=== PATIENT | male | born 1965 | race Caucasian/White ===

== ENCOUNTER 2019-05-04 22:37 | Inpatient (IN) | payer BC ==
[~2019-05-04] VITALS: Ht 172.7 cm; Wt 113.6 kg
--- NOTE | 2019-05-04 22:51 | NUR ---
elizabeth to give medical information to patients [id number] halima sanders [phone]
[2019-05-04] MEDS ORDERED: morphine 4 MG/ML inj SYRINge IV ONE (23:00)
[2019-05-04] MEDS ORDERED: ketorolac trometh. 30mg/ml inj. IV ONE (23:00)
[2019-05-04] MEDS ORDERED: NO HOME MEDS (23:13)
[2019-05-04] MEDS ORDERED: ondansetron/PF 4mg/2ml inj IV PRN (23:15)
[2019-05-04] MEDS ORDERED: CefTRIAXone/D5W-Rocephin 1gm 50 ML IV SCH (23:15)
[2019-05-04] MEDS ORDERED: magnesium hydroxide 30ml (MOM) UD suspension PO PRN (23:15)
[2019-05-04] MEDS ORDERED: acetaminophen 325mg tablet PO PRN ×2 (23:15)
[2019-05-04] MEDS ORDERED: mag hydrox/Alum hydrox/simeth 30ml oral suspension PO PRN (23:15)
[2019-05-04] MEDS ORDERED: CefTRIAXone/D5W-Rocephin 1gm 50 ML IV ONE (23:25)
[2019-05-04] MEDS: normal saline 1000ml 1,000 ML IV SCH (23:37)
[2019-05-05] MEDS ORDERED: VANCOmycin 1250MG/NS 250ml Bag 250 ML IV ONE (00:25)
[2019-05-05 01:00] VITALS: BP 127/75
[2019-05-05] MEDS: HYDROcodone/acetaminophen 10/325mg tab PO PRN ×2 (03:11→07:47)
[2019-05-05 05:28] LABS: BASOPHILS # (AUTO) 0.1 X10'3 (0-0.2); BASOPHILS % (AUTO) 0.4 % (0-1); EOSINOPHILS % (AUTO) 0.3 % (0-6); HEMATOCRIT 39.4 % (42.0-52.0); HEMOGLOBIN 13.4 g/dl (14.0-17.9); LYMPHOCYTES # (AUTO) 2.5 X10'3 (1.1-4.8); LYMPHOCYTES % (AUTO) 19.8 % (21-51); MEAN CORPUSCULAR HEMOGLOBIN 31.4 PG (27.0-31.0); MEAN CORPUSCULAR VOLUME 92.3 FL (78-98); MEAN PLATELET VOLUME 6.9 FL (7.4-10.4); MONOCYTES # (AUTO) 0.9 X10'3 (0-0.9); MONOCYTES % (AUTO) 7.2 % (2-12); NEUTROPHILS # (AUTO) 9.1 X10'3 (1.8-7.7); NEUTROPHILS % (AUTO) 72.3 % (42-75); PLATELET COUNT 319 X10'3 (140-440); RED BLOOD COUNT 4.26 X10'6 (4.70-6.10); WHITE BLOOD COUNT 12.5 X10'3 (4.5-11.0)
[2019-05-05 05:42] LABS: ALBUMIN 2.7 G/DL (3.4-5.0); ANION GAP 9 (8-16); BLOOD UREA NITROGEN 15 MG/DL (7-18); BUN/CREATININE RATIO 18.1 (5.4-32.0); CALCIUM 7.9 MG/DL (8.5-10.1); CHLORIDE 101 MMOL/L (99-107); CREATININE 0.83 MG/DL (0.60-1.10); GLUCOSE 99 MG/DL (70-104); POTASSIUM 3.6 MMOL/L (3.5-5.1); SODIUM 134 MMOL/L (135-145); TOTAL CARBON DIOXIDE 24.5 MMOL/L (24-32); eGFR > 90 ML/MIN
[2019-05-05 07:29] VITALS: BP 131/78
[2019-05-05] MEDS: lactobacillus rhamnosus 10,000 MMU CELLS/CAPSULE PO SCH ×2 (07:47→20:28)
[2019-05-05] MEDS: enoxaparin 40mg/0.4ml syringe SUBCUT SCH (07:49)
[2019-05-05] MEDS ORDERED: vancomycin/NS 1 GM ADD-VANTAGE 250 ML IV SCH (08:00)
[2019-05-05] MEDS: normal saline 1000ml 1,000 ML IV SCH ×2 (09:15→13:59)
[2019-05-05] MEDS ORDERED: docusate sod 100mg capsule PO ONE (10:46)
[2019-05-05 11:00] VITALS: BP 126/76
[2019-05-05] MEDS: HYDROmorphone 1 mg/ml syringe IV PRN ×3 (11:40→20:29)
[2019-05-05] MEDS ORDERED: tetanus & diphtheria toxoid (Td) vaccine 0.5ml IMVAC ONE (14:05)
[2019-05-05] MEDS ORDERED: LORazepam 1 MG tablet PO PRN (14:05)
[2019-05-05] MEDS ORDERED: TETanus/Pertussis (Acell)/Diphther VAC/PF (Tdap-Adult) 0.5ml syringe IMVAC ONE (15:30)
[2019-05-05 18:00] VITALS: BP 132/71
--- NOTE | 2019-05-05 18:21 | NUR ---
Problems reprioritized. Patient report given, questions answered & plan of care reviewed with Prudence RN.
--- NOTE | 2019-05-05 18:39 | NUR ---
Patient in room [facility]. I have received report from Rupal TAVERA and had the opportunity to ask questions and assume patient care.
[2019-05-05] MEDS: docusate sod 100mg capsule PO SCH (20:28)
[2019-05-05] MEDS: temazepam 15mg capsule PO PRN (21:38)
[2019-05-05] MEDS: CefTRIAXone/D5W-Rocephin 1gm 50 ML IV SCH (23:29)
[2019-05-06] VITALS (12 sets, daily range): BP systolic 124–165; BP diastolic 69–97
[2019-05-06] MEDS: HYDROmorphone 1 mg/ml syringe IV PRN ×6 (00:35→20:50)
[2019-05-06] MEDS: normal saline 1000ml 1,000 ML IV SCH ×3 (00:40→20:49)
[2019-05-06 05:47] LABS: BASOPHILS % (AUTO) 0.3 % (0-1); EOSINOPHILS % (AUTO) 0.4 % (0-6); HEMATOCRIT 38.8 % (42.0-52.0); HEMOGLOBIN 13.2 g/dl (14.0-17.9); LYMPHOCYTES # (AUTO) 2.2 X10'3 (1.1-4.8); LYMPHOCYTES % (AUTO) 18.2 % (21-51); MEAN CORPUSCULAR HEMOGLOBIN 31.4 PG (27.0-31.0); MEAN CORPUSCULAR HGB CONC 33.9 g/dL (33.0-36.5); MEAN CORPUSCULAR VOLUME 92.6 FL (78-98); MEAN PLATELET VOLUME 6.6 FL (7.4-10.4); MONOCYTES # (AUTO) 0.8 X10'3 (0-0.9); MONOCYTES % (AUTO) 7.1 % (2-12); NEUTROPHILS # (AUTO) 8.7 X10'3 (1.8-7.7); PLATELET COUNT 275 X10'3 (140-440); RED BLOOD COUNT 4.19 X10'6 (4.70-6.10); WHITE BLOOD COUNT 11.8 X10'3 (4.5-11.0)
[2019-05-06 05:56] LABS: ALBUMIN 2.6 G/DL (3.4-5.0); ANION GAP 8 (8-16); BLOOD UREA NITROGEN 12 MG/DL (7-18); BUN/CREATININE RATIO 15.4 (5.4-32.0); CALCIUM 8.1 MG/DL (8.5-10.1); CHLORIDE 103 MMOL/L (99-107); CREATININE 0.78 MG/DL (0.60-1.10); GLUCOSE 97 MG/DL (70-104); POTASSIUM 3.7 MMOL/L (3.5-5.1); SODIUM 137 MMOL/L (135-145); TOTAL CARBON DIOXIDE 26.5 MMOL/L (24-32); eGFR > 90 ML/MIN
--- NOTE | 2019-05-06 06:00 | NUR ---
Patient in room [facility] 360. I have received report from Precious TAVERA and had the opportunity to ask questions and assume patient care.
--- NOTE | 2019-05-06 06:37 | NUR ---
Problems reprioritized. Patient report given, questions answered & plan of care reviewed with Rupal TAVERA. Patient has been having contant pain and pain medication was administered as ordered.
[2019-05-06] MEDS: enoxaparin 40mg/0.4ml syringe SUBCUT SCH (07:06)
[2019-05-06] MEDS: docusate sod 100mg capsule PO SCH ×2 (07:07→20:49)
[2019-05-06] MEDS: lactobacillus rhamnosus 10,000 MMU CELLS/CAPSULE PO SCH ×2 (07:07→20:49)
[2019-05-06] MEDS ORDERED: VANCOMYCIN LEVEL IV ONE (08:30)
--- NOTE | 2019-05-06 11:54 | NUR ---
Patient report given to recovery nurse Cesar TAVERA. Pt taken down to OR. OR personnel took pt down without informing primary nurse, family very upset about miscommunication. Charge nurse and OR Charge nurse informed.
[2019-05-06] MEDS ORDERED: morphine 4 MG/ML inj SYRINge IV PRN ×2 (12:00)
[2019-05-06] MEDS ORDERED: meperidine/PF 25mg/ml syringe IV PRN ×3 (12:00)
[2019-05-06] MEDS ORDERED: proCHLORperazine 10 MG/2 ml inj IV PRN (12:00)
[2019-05-06] MEDS ORDERED: ondansetron/PF 4mg/2ml inj IV PRN (12:00)
[2019-05-06] MEDS ORDERED: ringers solution, lacted 1,000 ML IV SCH (12:00)
[2019-05-06] MEDS ORDERED: sevoflurane 250ml liquid IH ONE (12:15)
[2019-05-06] MEDS ORDERED: midazolam 2 mg/2 ml injection ONE (12:18)
[2019-05-06] MEDS ORDERED: fentaNYL /PF 50mcg/ml 5ml ampule ONE (12:18)
[2019-05-06] MEDS ORDERED: ondansetron/PF 4mg/2ml inj ONE (12:52)
[2019-05-06] MEDS ORDERED: dexamethasone sod phosphate 4mg/ml inj. ONE (12:52)
[2019-05-06] MEDS ORDERED: glycopyrrolate 0.2mg/ml inj ONE (12:52)
[2019-05-06] MEDS ORDERED: rocuronium 10mg/ml inj IV ONE (12:52)
[2019-05-06] MEDS ORDERED: propofol inj 20 ML IV ONE (12:52)
[2019-05-06] MEDS ORDERED: neostigmine methylsulfate 1 MG/ML 10ml vial ONE (12:52)
[2019-05-06] MEDS ORDERED: LIDOcaine 2% (20mg/ml) 5ml vial ONE (12:52)
[2019-05-06] MEDS ORDERED: albuterol 60 PUFF/8GM Inhaler IH ONE (13:24)
--- NOTE | 2019-05-06 13:25 | NUR ---
ADMITTED TO PACU FROM OR ACCOMPANIED BY ANESTHESIA. INTIAL PHYSICAL ASSESSMENT DONE AND RECORDED. REPORT RECEIVED FROM ANESTHESIA.
--- NOTE | 2019-05-06 14:30 | NUR ---
PACU DISCHARGE CRITERIA MET, REPORT GIVEN TO FLOOR. DENIES PAIN OR DISCOMFORT, TRANSFERRED TO ROOM IN STABLE GOOD CONDITION.
--- NOTE | 2019-05-06 18:28 | NUR ---
Problems reprioritized. Patient report given, questions answered & plan of care reviewed with Prudence RN.
[2019-05-06] MEDS: CefTRIAXone/D5W-Rocephin 1gm 50 ML IV SCH (23:07)
[2019-05-07] VITALS: BP 120/96
[2019-05-07] MEDS: HYDROcodone/acetaminophen 5mg/325mg tablet PO PRN ×2 (02:57→19:19)
[2019-05-07 04:44] LABS: BASOPHILS % (AUTO) 0.2 % (0-1); EOSINOPHILS % (AUTO) 0 % (0-6); HEMATOCRIT 37.6 % (42.0-52.0); HEMOGLOBIN 12.9 g/dl (14.0-17.9); LYMPHOCYTES # (AUTO) 1.9 X10'3 (1.1-4.8); LYMPHOCYTES % (AUTO) 15.2 % (21-51); MEAN CORPUSCULAR HEMOGLOBIN 31.8 PG (27.0-31.0); MEAN CORPUSCULAR HGB CONC 34.3 g/dL (33.0-36.5); MEAN CORPUSCULAR VOLUME 92.5 FL (78-98); MEAN PLATELET VOLUME 6.7 FL (7.4-10.4); MONOCYTES # (AUTO) 0.8 X10'3 (0-0.9); MONOCYTES % (AUTO) 6.3 % (2-12); NEUTROPHILS # (AUTO) 9.7 X10'3 (1.8-7.7); NEUTROPHILS % (AUTO) 78.3 % (42-75); PLATELET COUNT 338 X10'3 (140-440); RED BLOOD COUNT 4.06 X10'6 (4.70-6.10); RED CELL DISTRIBUTION WIDTH 12.9 % (11.5-14.5); WHITE BLOOD COUNT 12.4 X10'3 (4.5-11.0)
[2019-05-07 06:02] LABS: ALBUMIN 2.5 G/DL (3.4-5.0); ANION GAP 10 (8-16); BLOOD UREA NITROGEN 10 MG/DL (7-18); BUN/CREATININE RATIO 15.6 (5.4-32.0); CALCIUM 8.9 MG/DL (8.5-10.1); CHLORIDE 104 MMOL/L (99-107); CREATININE 0.64 MG/DL (0.60-1.10); GLUCOSE 121 MG/DL (70-104); SODIUM 139 MMOL/L (135-145); TOTAL CARBON DIOXIDE 24.8 MMOL/L (24-32); eGFR > 90 ML/MIN
--- NOTE | 2019-05-07 06:32 | NUR ---
Problems reprioritized. Patient report given, questions answered & plan of care reviewed with Rupal TAVERA.
--- NOTE | 2019-05-07 06:52 | NUR ---
Patient in room [facility] 357. I have received report from Precious TAVERA and had the opportunity to ask questions and assume patient care.
[2019-05-07 06:57] VITALS: BP 123/70
[2019-05-07] MEDS ORDERED: VANCOMYCIN LEVEL IV ONE ×2 (07:30→08:30)
[2019-05-07] MEDS: docusate sod 100mg capsule PO SCH ×2 (08:08→19:18)
[2019-05-07] MEDS: HYDROcodone/acetaminophen 10/325mg tab PO PRN ×2 (08:08→14:09)
[2019-05-07] MEDS: lactobacillus rhamnosus 10,000 MMU CELLS/CAPSULE PO SCH ×2 (08:08→19:18)
[2019-05-07] MEDS: enoxaparin 40mg/0.4ml syringe SUBCUT SCH (08:09)
[2019-05-07 11:33] VITALS: BP 128/74
[2019-05-07] MEDS: normal saline 1000ml 1,000 ML IV SCH ×2 (11:49→21:55)
[2019-05-07] MEDS ORDERED: VANCOmycin 1250MG/NS 250ml Bag 250 ML IV SCH (14:00)
[2019-05-07 18:00] VITALS: BP 122/74
--- NOTE | 2019-05-07 18:13 | NUR ---
Problems reprioritized. Patient report given, questions answered & plan of care reviewed with Prudence RN.
--- NOTE | 2019-05-07 18:28 | NUR ---
Patient in room [facility] 357. I have received report from Rupal TAVERA and had the opportunity to ask questions and assume patient care. Patient is resting and shows no sign of distress.
[2019-05-07] MEDS: temazepam 15mg capsule PO PRN (21:54)
[2019-05-08] VITALS: BP 121/66
[2019-05-08] MEDS: piperacillin/tazo 3.375gm/50ml 50 ML IV SCH ×2 (00:12→08:07)
[2019-05-08] MEDS: HYDROcodone/acetaminophen 5mg/325mg tablet PO PRN ×4 (02:28→19:18)
--- NOTE | 2019-05-08 06:40 | NUR ---
Problems reprioritized. Patient report given, questions answered & plan of care reviewed withMaryam TAVERA. Patient is resting.
[2019-05-08 07:06] VITALS: BP 145/85
[2019-05-08] MEDS: normal saline 1000ml 1,000 ML IV SCH ×2 (07:15→16:36)
[2019-05-08 07:21] LABS: BASOPHILS % (AUTO) 0.5 % (0-1); EOSINOPHILS # (AUTO) 0.1 X10'3 (0-0.9); EOSINOPHILS % (AUTO) 1.3 % (0-6); HEMATOCRIT 35.7 % (42.0-52.0); HEMOGLOBIN 12.5 g/dl (14.0-17.9); LYMPHOCYTES # (AUTO) 2.5 X10'3 (1.1-4.8); LYMPHOCYTES % (AUTO) 33.2 % (21-51); MEAN CORPUSCULAR HEMOGLOBIN 31.8 PG (27.0-31.0); MEAN CORPUSCULAR HGB CONC 34.9 g/dL (33.0-36.5); MEAN CORPUSCULAR VOLUME 91.1 FL (78-98); MEAN PLATELET VOLUME 6.3 FL (7.4-10.4); MONOCYTES # (AUTO) 0.5 X10'3 (0-0.9); NEUTROPHILS # (AUTO) 4.3 X10'3 (1.8-7.7); PLATELET COUNT 350 X10'3 (140-440); RED BLOOD COUNT 3.92 X10'6 (4.70-6.10); RED CELL DISTRIBUTION WIDTH 12.8 % (11.5-14.5); WHITE BLOOD COUNT 7.5 X10'3 (4.5-11.0)
[2019-05-08] MEDS ORDERED: VANCOMYCIN LEVEL IV ONE (07:30)
[2019-05-08 07:50] LABS: ALBUMIN 2.5 G/DL (3.4-5.0); ANION GAP 7 (8-16); BLOOD UREA NITROGEN 11 MG/DL (7-18); BUN/CREATININE RATIO 15.9 (5.4-32.0); CALCIUM 9.5 MG/DL (8.5-10.1); CHLORIDE 107 MMOL/L (99-107); CREATININE 0.69 MG/DL (0.60-1.10); GLUCOSE 93 MG/DL (70-104); POTASSIUM 3.5 MMOL/L (3.5-5.1); SODIUM 141 MMOL/L (135-145); TOTAL CARBON DIOXIDE 26.7 MMOL/L (24-32); eGFR > 90 ML/MIN
[2019-05-08] MEDS: docusate sod 100mg capsule PO SCH ×2 (08:06→19:17)
[2019-05-08] MEDS: lactobacillus rhamnosus 10,000 MMU CELLS/CAPSULE PO SCH ×2 (08:06→19:17)
[2019-05-08] MEDS: enoxaparin 40mg/0.4ml syringe SUBCUT SCH (08:07)
--- NOTE | 2019-05-08 10:45 | NUR ---
Student documentation: I have reviewed and agree with all interventions, assessments performed and documented by SN Debbie.
[2019-05-08 12:19] VITALS: BP 145/87
--- NOTE | 2019-05-08 18:29 | NUR ---
Problems reprioritized. Patient report given, questions answered & plan of care reviewed with AYSE Odom.
[2019-05-08 18:30] VITALS: BP 159/87
--- NOTE | 2019-05-08 18:31 | NUR ---
Patient in room [facility] 357. I have received report from Claire TAVERA and had the opportunity to ask questions and assume patient care.
[2019-05-08] MEDS: HYDROcodone/acetaminophen 10/325mg tab PO PRN (22:42)
[2019-05-09] VITALS: BP 157/88
[2019-05-09] MEDS: normal saline 1000ml 1,000 ML IV SCH ×2 (02:45→13:15)
[2019-05-09] MEDS: HYDROcodone/acetaminophen 10/325mg tab PO PRN ×2 (04:18→10:10)
[2019-05-09 05:14] LABS: BASOPHILS % (AUTO) 0.4 % (0-1); EOSINOPHILS # (AUTO) 0.1 X10'3 (0-0.9); EOSINOPHILS % (AUTO) 1.8 % (0-6); HEMATOCRIT 37.9 % (42.0-52.0); HEMOGLOBIN 13.1 g/dl (14.0-17.9); LYMPHOCYTES # (AUTO) 2.4 X10'3 (1.1-4.8); LYMPHOCYTES % (AUTO) 33.2 % (21-51); MEAN CORPUSCULAR HEMOGLOBIN 31.6 PG (27.0-31.0); MEAN CORPUSCULAR HGB CONC 34.5 g/dL (33.0-36.5); MEAN CORPUSCULAR VOLUME 91.8 FL (78-98); MEAN PLATELET VOLUME 6.5 FL (7.4-10.4); MONOCYTES # (AUTO) 0.5 X10'3 (0-0.9); MONOCYTES % (AUTO) 6.5 % (2-12); NEUTROPHILS # (AUTO) 4.1 X10'3 (1.8-7.7); NEUTROPHILS % (AUTO) 58.1 % (42-75); PLATELET COUNT 382 X10'3 (140-440); RED BLOOD COUNT 4.14 X10'6 (4.70-6.10); WHITE BLOOD COUNT 7.1 X10'3 (4.5-11.0)
[2019-05-09 05:38] LABS: ANION GAP 9 (8-16); CALCIUM 9.7 MG/DL (8.5-10.1); CHLORIDE 106 MMOL/L (99-107); CREATININE 0.56 MG/DL (0.60-1.10); GLUCOSE 89 MG/DL (70-104); POTASSIUM 3.4 MMOL/L (3.5-5.1); SODIUM 141 MMOL/L (135-145); TOTAL CARBON DIOXIDE 26.1 MMOL/L (24-32); eGFR > 90 ML/MIN
[2019-05-09 05:55] LABS: ALBUMIN 2.6 G/DL (3.4-5.0); BLOOD UREA NITROGEN 6 MG/DL (7-18); BUN/CREATININE RATIO 10.7 (5.4-32.0)
--- NOTE | 2019-05-09 06:35 | NUR ---
Problems reprioritized. Patient report given, questions answered & plan of care reviewed with Anna TAVERA.
[2019-05-09 07:28] VITALS: BP 167/86
[2019-05-09] MEDS: lactobacillus rhamnosus 10,000 MMU CELLS/CAPSULE PO SCH (07:50)
[2019-05-09] MEDS: enoxaparin 40mg/0.4ml syringe SUBCUT SCH (07:51)
[2019-05-09] MEDS: docusate sod 100mg capsule PO SCH (07:51)
[2019-05-09] MEDS ORDERED: levoFLOXACIN-Levaquin 500mg/D5 100 ML IV SCH (08:00)
[2019-05-09] MEDS ORDERED: potassium Cl 20 mEq SR tablet PO ONE (10:40)
[2019-05-09 11:00] VITALS: BP 159/89
[2019-05-09] MEDS ORDERED: LEVO500T2 PO (11:20)
--- NOTE | 2019-05-09 11:26 | NUR ---
Will be waiting for discharge in order to have wound care change wound VAC dressing. Patient aware.
[2019-05-09] MEDS: HYDROmorphone 1 mg/ml syringe IV PRN (12:13)
--- NOTE | 2019-05-09 12:32 | NUR ---
PAGER ID: [phone] MESSAGE: Deni Monaco [id number] Pt's is concerned about pt. going home and would like to speak with you in person. Pt. also requesting [place] to go home with. Anna [phone]
[2019-05-09] MEDS ORDERED: HYDR-4353 PO (12:45)
--- NOTE | 2019-05-09 13:17 | NUR ---
WOUND VAC EDUCATION PROVIDED BY WOUND CARE 1. Patient instructed to call the Wound Center or their Home Health Agency immediately if: * They notice a change in the color or amount of the fluid in the canister. * Their wound looks more red than usual or has a foul smell. * The skin around their wound looks reddened or irritated. * The dressing feels loose or appears to be loose. * They experience any increase or changes in their pain. * The alarm will not turn off. 2. Patient instructed that they should not be disconnected from suction for more than 2 hours at a time. * If they are not able to get the suction back on, they need to remove the dressing and take all of the foam out of the wound. * Then moisten sterile gauze with normal saline and place on/in the wound. * Change the dressing once a day until arrangements have been made to replace the wound vac dressing. 3. Patient instructed to turn the wound vac machine OFF and call 911 or go to the ED immediately if their canister fills rapidly with blood. 4. If any of these occur while in the hospital tell a nurse immediately. Addendum: 05/09/19 at 1318 by Laverne Morton RN Amended: Links added.
--- NOTE | 2019-05-09 15:17 | NUR ---
Waiting on discharge r/t wound vac authorization.
--- NOTE | 2019-05-09 17:30 | NUR ---
Pt. discharged in a stable condition. IV DC"d. Home wound VAC provided by case management. Pt. will follow up at PCP and MD Kiran's office. Contact info provided. Wound Vac education provided. Pt. knows to pick remover medications at pharmacy. Medications reviewed with pt. and spouse. Pt. escorted out of hospital in a w/c by hospital staff member to private vehicle.
== END 2019-05-09 17:29 | disposition home health service (06) | DRG 603 ==
LOC: ER 22:39 → ED HOLD 05-05 00:18 → SUR 3N 05-05 00:22
PROVIDERS: ADMIT Hospitalist; ATTEND Family Medicine
PROC: 0W9M0ZZ Drainage of Male Perineum, Open Approach (ICD-10-PCS; principal; 2019-05-06 12:15)
DX: L02.215 Cutaneous abscess of perineum (principal); E87.1 Hypo-osmolality and hyponatremia; E44.0 Moderate protein-calorie malnutrition; B95.62 Methicillin resistant Staphylococcus aureus infection as the cause of diseases classified elsewhere; D64.9 Anemia, unspecified; E87.6 Hypokalemia; N48.21 Abscess of corpus cavernosum and penis; B96.20 Unspecified Escherichia coli [E. coli] as the cause of diseases classified elsewhere; L03.315 Cellulitis of perineum; Z68.38 Body mass index [BMI] 38.0-38.9, adult; Z90.49 Acquired absence of other specified parts of digestive tract
CPT/HCPCS: 96365; 96375; 99285; Z7506; Z7508; 36415; 80048; 80202; 85025; 87070; 87077; 87081; 87186; 93005; A4215; A4338; A4618; A6550; A7000; G0378; J0696; J1100; J1170; J1650; J1885; J1956; J2001; J2250; J2270; J2405; J2543; J2704; J2710; J3010; J3370; J3490; J7030; J7120

== ENCOUNTER 2019-11-05 13:48 | Inpatient (IN) | payer BC ==
[2019-11-05] VITALS (8 sets, daily range): BP systolic 114–128; BP diastolic 65–81
[~2019-11-05] VITALS: Ht 167.6 cm; Wt 109.1 kg
[2019-11-05] MEDS ORDERED: verapamil 2.5 mg/ml inj IV ONE (13:55)
[2019-11-05] MEDS ORDERED: midazolam 2 mg/2 ml injection ONE (13:55)
[2019-11-05] MEDS ORDERED: fentaNYL/PF 50MCG/1 ML 2ML syringe ONE (13:55)
[2019-11-05] MEDS ORDERED: iohexol 350MG/ML 100ml bottle IV ONE ×2 (13:56→14:52)
[2019-11-05] MEDS ORDERED: LIDOcaine 1% (10mg/ml)w/preservative injection 20ml MDV ONE (13:56)
[2019-11-05] MEDS ORDERED: nitroGLYCERIN-Tridil 50MG/D5W 250 ML IV ONE (13:56)
[2019-11-05] MEDS ORDERED: iohexol 350 MG/ML 50ML vial IV ONE (13:56)
[2019-11-05] MEDS ORDERED: heparin 1,000unit/ml 10ml vial 10 ML ONE ×2 (13:56→15:18)
--- NOTE | 2019-11-05 14:17 | NUR ---
DR. LANDAVERDE AT BEDSIDE. PT PREPPED BY MILTON SINGH RN AT [facility] TO TRANSPORT PT TO BOOM MASTER.
[2019-11-05 14:18] LABS: BASOPHILS % (AUTO) 0.4 % (0-1); EOSINOPHILS % (AUTO) 0.2 % (0-6); HEMATOCRIT 45.7 % (42.0-52.0); HEMOGLOBIN 15.1 g/dl (14.0-17.9); LYMPHOCYTES # (AUTO) 3.3 X10'3 (1.1-4.8); LYMPHOCYTES % (AUTO) 26.6 % (21-51); MEAN CORPUSCULAR HEMOGLOBIN 30.4 PG (27.0-31.0); MEAN CORPUSCULAR HGB CONC 32.9 g/dL (33.0-36.5); MEAN CORPUSCULAR VOLUME 92.3 FL (78-98); MEAN PLATELET VOLUME 6.3 FL (7.4-10.4); MONOCYTES # (AUTO) 0.7 X10'3 (0-0.9); MONOCYTES % (AUTO) 5.8 % (2-12); NEUTROPHILS # (AUTO) 8.4 X10'3 (1.8-7.7); PLATELET COUNT 350 X10'3 (140-440); RED BLOOD COUNT 4.95 X10'6 (4.70-6.10); RED CELL DISTRIBUTION WIDTH 14.2 % (11.5-14.5); WHITE BLOOD COUNT 12.6 X10'3 (4.5-11.0)
[2019-11-05 14:35] LABS: ALANINE AMINOTRANSFERASE 66 U/L (12-78); ALBUMIN 3.6 G/DL (3.4-5.0); ALKALINE PHOSPHATASE 62 IU/L (46-116); ANION GAP 9 (8-16); ASPARTATE AMINO TRANSFERASE 288 U/L (10-37); BILIRUBIN,TOTAL 1.1 MG/DL (0.1-1.0); BLOOD UREA NITROGEN 18 MG/DL (7-18); BUN/CREATININE RATIO 24.7 (5.4-32.0); CALCIUM 8.3 MG/DL (8.5-10.1); CHLORIDE 108 MMOL/L (99-107); CREATININE 0.73 MG/DL (0.60-1.10); GLUCOSE 103 MG/DL (70-104); POTASSIUM 3.9 MMOL/L (3.5-5.1); SODIUM 141 MMOL/L (135-145); TOTAL CARBON DIOXIDE 24.4 MMOL/L (24-32); TOTAL PROTEIN 7.1 G/DL (6.4-8.2); eGFR > 90 ML/MIN
[2019-11-05] MEDS ORDERED: heparin 25,000 UNIT/250ml bag 250 ML IV ONE (14:43)
[2019-11-05] MEDS ORDERED: ticagrelor 90mg tablet ONE (15:11)
[2019-11-05] MEDS ORDERED: LISI10TA4 PO (16:13)
[2019-11-05] MEDS ORDERED: HYDROcodone/acetaminophen 5mg/325mg tablet PO PRN ×2 (16:15→16:35)
[2019-11-05] MEDS ORDERED: normal saline 1000ml 1,000 ML IV ONE (16:15)
[2019-11-05] MEDS ORDERED: OXAZEpam 15mg capsule PO PRN (16:15)
[2019-11-05] MEDS ORDERED: HYDROcodone/acetaminophen 10/325mg tab PO PRN (16:15)
[2019-11-05] MEDS ORDERED: ondansetron/PF 4mg/2ml inj IV PRN ×2 (16:15→16:35)
[2019-11-05] MEDS ORDERED: nitroGLYCERIN 0.4mg SUBLingual tab SL PRN (16:15)
[2019-11-05] MEDS ORDERED: proCHLORperazine 10 MG/2 ml inj IV PRN (16:15)
[2019-11-05] MEDS ORDERED: TICA90TA PO (16:24)
[2019-11-05] MEDS ORDERED: ASPI-611 PO (16:24)
[2019-11-05] MEDS ORDERED: ATOR40TA71 PO (16:24)
[2019-11-05] MEDS ORDERED: mag hydrox/Alum hydrox/simeth 30ml oral suspension PO PRN (16:35)
[2019-11-05] MEDS ORDERED: acetaminophen 325mg tablet PO PRN ×2 (16:35)
[2019-11-05] MEDS ORDERED: magnesium Cl slow-release 64mg tablet PO PRN (16:35)
[2019-11-05] MEDS ORDERED: magnesium 2GM in 50ml NS 50 ML IV PRN (16:35)
[2019-11-05] MEDS ORDERED: potassium Cl 20 mEq SR tablet PO PRN ×2 (16:35)
[2019-11-05] MEDS ORDERED: magnesium 4gm in 100ml NS 100 ML IV PRN (16:35)
[2019-11-05] MEDS ORDERED: potassium CL 10mEq/100ml bag 100 ML IV PRN ×2 (16:35)
[2019-11-05] MEDS ORDERED: morphine 2 MG/ML inj. syringe IV PRN (16:35)
[2019-11-05] MEDS: normal saline 1000ml 1,000 ML IV SCH (16:55)
--- NOTE | 2019-11-05 17:45 | NUR ---
Radial pressure device removed. No bleeding noted at site.
--- NOTE | 2019-11-05 18:26 | NUR ---
Problems reprioritized. Patient report given, questions answered & plan of care reviewed with Audra TAVERA.
--- NOTE | 2019-11-05 18:31 | NUR ---
Patient in room PCU 3026. I have received report from Alonzo TAVERA and had the opportunity to ask questions and assume patient care.
[2019-11-05] MEDS: K and/or MAG REPLACEMENT MC SCH (20:00)
--- NOTE | 2019-11-05 20:18 | NUR ---
[facility] CALLED REGARDING RADIAL SITE BLEED BLEED MINIMAL PUT VASCULAR BAND BACK ON AT 2014 , ASSESSED PATIENT, TOOK VITAL SIGNS AND INQUIRED FOR CHEST PAIN (NONE PER PATIENT). WILL CONTINUE TO MONITOR, PAGED AK[facility]IL FOR ORDERS
[2019-11-05] MEDS ORDERED: temazepam 15mg capsule PO PRN (21:00)
[2019-11-05] MEDS ORDERED: atorvastatin 20mg tablet PO SCH (21:00)
[2019-11-05] MEDS: docusate sod 100mg capsule PO SCH (21:14)
[2019-11-05] MEDS: metoprolol tartrate 25mg tablet PO SCH (21:16)
[2019-11-05] MEDS: heparin, porcine 5000 units/ml vial SQ SCH (21:21)
--- NOTE | 2019-11-05 22:30 | NUR ---
vascband reassessed, I ml releassed. no blleeding noted
[2019-11-06] VITALS (7 sets, daily range): BP systolic 102–146; BP diastolic 63–99
--- NOTE | 2019-11-06 | NUR ---
per tiny will inflate vascband 3 ml: will release 1 ml every 0.5 hr. when no air in vascband, will remain on patient for one full hour; will then put coban on, monitoring entire tme for any new/additional changes in skin/site/bleeding. Bjorn Alvarenga RN
[2019-11-06] MEDS: normal saline 1000ml 1,000 ML IV SCH (02:35)
--- NOTE | 2019-11-06 05:00 | NUR ---
REASSESSED VASC BAND, NO BLEEDING AT SITE SINCE 1145 11/05/19-FOLLOWED MD ORDERS PER TELEPHONE CONVERSATION-COBAN AND BANDAGE APPLIED-NO NO NEW FINDINGS. PETER TAVERA
--- NOTE | 2019-11-06 06:15 | NUR ---
Problems reprioritized. Patient report given, questions answered & plan of care reviewed with LORNE RN.
[2019-11-06 07:11] LABS: BASOPHILS % (AUTO) 0.4 % (0-1); EOSINOPHILS % (AUTO) 0.2 % (0-6); HEMATOCRIT 42.8 % (42.0-52.0); HEMOGLOBIN 14.4 g/dl (14.0-17.9); LYMPHOCYTES # (AUTO) 2.7 X10'3 (1.1-4.8); LYMPHOCYTES % (AUTO) 27.3 % (21-51); MEAN CORPUSCULAR HEMOGLOBIN 31.5 PG (27.0-31.0); MEAN CORPUSCULAR HGB CONC 33.7 g/dL (33.0-36.5); MEAN CORPUSCULAR VOLUME 93.4 FL (78-98); MEAN PLATELET VOLUME 6.4 FL (7.4-10.4); MONOCYTES # (AUTO) 0.7 X10'3 (0-0.9); MONOCYTES % (AUTO) 7.3 % (2-12); NEUTROPHILS # (AUTO) 6.3 X10'3 (1.8-7.7); NEUTROPHILS % (AUTO) 64.8 % (42-75); PLATELET COUNT 317 X10'3 (140-440); RED BLOOD COUNT 4.58 X10'6 (4.70-6.10); RED CELL DISTRIBUTION WIDTH 14.2 % (11.5-14.5); WHITE BLOOD COUNT 9.7 X10'3 (4.5-11.0)
[2019-11-06 07:33] LABS: ALANINE AMINOTRANSFERASE 89 U/L (12-78); ALBUMIN 3.1 G/DL (3.4-5.0); ALBUMIN/GLOBULIN RATIO 0.9 (1.1-1.5); ALKALINE PHOSPHATASE 58 IU/L (46-116); ANION GAP 6 (8-16); ASPARTATE AMINO TRANSFERASE 355 U/L (10-37); BILIRUBIN,TOTAL 2.4 MG/DL (0.1-1.0); BLOOD UREA NITROGEN 12 MG/DL (7-18); BUN/CREATININE RATIO 16.7 (5.4-32.0); CALCIUM 8.2 MG/DL (8.5-10.1); CHLORIDE 105 MMOL/L (99-107); CHOL/HDL RATIO 5.9 (0.00-4.99); CHOLESTEROL 183 MG/DL (0-200); CREATININE 0.72 MG/DL (0.60-1.10); GLUCOSE 108 MG/DL (70-104); HDL CHOLESTEROL 31 MG/DL (35-60); LDL CHOLESTEROL 132 MG/DL (50-100); SODIUM 137 MMOL/L (135-145); TOTAL CARBON DIOXIDE 25.7 MMOL/L (24-32); TOTAL PROTEIN 6.6 G/DL (6.4-8.2); TRIGLYCERIDES 189 MG/DL (20-135); eGFR > 90 ML/MIN
[2019-11-06] MEDS: K and/or MAG REPLACEMENT MC SCH ×2 (08:00→19:59)
[2019-11-06] MEDS ORDERED: lisinopril 10 MG tablet PO SCH (08:00)
[2019-11-06] MEDS: metoprolol tartrate 25mg tablet PO SCH ×2 (08:11→19:58)
[2019-11-06] MEDS: docusate sod 100mg capsule PO SCH ×2 (08:11→19:58)
[2019-11-06] MEDS: pantoprazole 40mg Tablet.DR PO SCH (08:12)
[2019-11-06] MEDS: lisinopril 10 MG tablet PO SCH (08:12)
[2019-11-06] MEDS: heparin, porcine 5000 units/ml vial SQ SCH ×2 (08:13→19:52)
--- NOTE | 2019-11-06 10:11 | NUR ---
Patient in room PCU 3026. I have received report from AYSE FRANK and had the opportunity to ask questions and assume patient care.
--- NOTE | 2019-11-06 11:52 | NUR ---
PAGER ID: [phone] MESSAGE: DR. ALVAREZ, [id number]/LATONYA,HE SAYS YOU ARE WAITING FOR DR. HANSEN TO DISCHARGE? DO I NEED TO WAIT? LORNE [id number], TY.
--- NOTE | 2019-11-06 13:19 | NUR ---
PAGER ID: [phone] MESSAGE: DR. PONCE, [id number]/LATONYA, 6 BEAT RUN VT. ASX. HR 70, 112/71. K+ 4.0. MG+ 2.0. LORNE [id number]. TY
--- NOTE | 2019-11-06 18:17 | NUR ---
Patient in room PCU 3026. I have received report from LORNE TAVERA and had the opportunity to ask questions and assume patient care.
[2019-11-07 02:00] VITALS: BP 97/60
[2019-11-07 06:00] VITALS: BP 118/74
[2019-11-07 06:32] LABS: BASOPHILS % (AUTO) 0.3 % (0-1); EOSINOPHILS % (AUTO) 0.6 % (0-6); HEMATOCRIT 41.4 % (42.0-52.0); HEMOGLOBIN 14.2 g/dl (14.0-17.9); LYMPHOCYTES # (AUTO) 2.9 X10'3 (1.1-4.8); LYMPHOCYTES % (AUTO) 34.1 % (21-51); MEAN CORPUSCULAR HEMOGLOBIN 31.7 PG (27.0-31.0); MEAN CORPUSCULAR HGB CONC 34.3 g/dL (33.0-36.5); MEAN CORPUSCULAR VOLUME 92.3 FL (78-98); MEAN PLATELET VOLUME 6.7 FL (7.4-10.4); MONOCYTES # (AUTO) 0.6 X10'3 (0-0.9); MONOCYTES % (AUTO) 7.2 % (2-12); NEUTROPHILS % (AUTO) 57.8 % (42-75); PLATELET COUNT 288 X10'3 (140-440); RED BLOOD COUNT 4.48 X10'6 (4.70-6.10); WHITE BLOOD COUNT 8.6 X10'3 (4.5-11.0)
[2019-11-07 06:35] LABS: ALANINE AMINOTRANSFERASE 59 U/L (12-78); ALBUMIN/GLOBULIN RATIO 0.8 (1.1-1.5); ALKALINE PHOSPHATASE 56 IU/L (46-116); ANION GAP 8 (8-16); ASPARTATE AMINO TRANSFERASE 131 U/L (10-37); BILIRUBIN,TOTAL 2.3 MG/DL (0.1-1.0); CALCIUM 8.4 MG/DL (8.5-10.1); CHLORIDE 105 MMOL/L (99-107); CREATININE 0.69 MG/DL (0.60-1.10); GLUCOSE 88 MG/DL (70-104); MAGNESIUM 2.1 MG/DL (1.5-2.4); POTASSIUM 3.7 MMOL/L (3.5-5.1); SODIUM 139 MMOL/L (135-145); TOTAL CARBON DIOXIDE 25.9 MMOL/L (24-32); TOTAL PROTEIN 6.6 G/DL (6.4-8.2); eGFR > 90 ML/MIN
[2019-11-07 07:03] LABS: BLOOD UREA NITROGEN 11 MG/DL (7-18); BUN/CREATININE RATIO 15.9 (5.4-32.0)
--- NOTE | 2019-11-07 07:03 | NUR ---
Patient in room PCU 3026. I have received report from AYSE FRANK and had the opportunity to ask questions and assume patient care.
--- NOTE | 2019-11-07 07:25 | NUR ---
RECEVED FROM ER VIA BED. TR IN. PT ON NTG GTT TO PIV RFA AT 5 MCG/MIN.
[2019-11-07] MEDS: K and/or MAG REPLACEMENT MC SCH (08:00)
[2019-11-07] MEDS: docusate sod 100mg capsule PO SCH (08:00)
--- NOTE | 2019-11-07 08:00 | NUR ---
PAGE OUT TO DR. GUPTA, RE:NO BRILINTA OR ASA ORDERS. POST CORONARY STENT.
[2019-11-07] MEDS: pantoprazole 40mg Tablet.DR PO SCH (08:06)
[2019-11-07] MEDS: metoprolol tartrate 25mg tablet PO SCH (08:10)
[2019-11-07] MEDS: lisinopril 10 MG tablet PO SCH (08:10)
[2019-11-07] MEDS: heparin, porcine 5000 units/ml vial SQ SCH (08:11)
[2019-11-07] MEDS ORDERED: ticagrelor 90mg tablet PO ONE (08:55)
[2019-11-07] MEDS ORDERED: aspirin 81mg tablet.DR PO SCH (09:00)
[2019-11-07 11:00] VITALS: BP 107/72
[2019-11-07] MEDS ORDERED: METO25TA6 PO (11:42)
--- NOTE | 2019-11-07 13:47 | NUR ---
PAGER ID: [phone] MESSAGE: DR. PONCE, [id number]/LATONYA, HE IS ASKING IF HE IS BEING DISCHARGED TODAY? HAS BEEN PATIENTLY WAITING. LORNE [id number]. TY
--- NOTE | 2019-11-07 13:52 | NUR ---
DR. PONCE IN, OKAY TO DISCHARGE WITH ORDERS WRITTEN 11-06-19
[2019-11-07] MEDS ORDERED: ticagrelor 90mg tablet PO SCH (20:00)
== END 2019-11-07 15:47 | disposition home or self-care (01) | DRG 247 ==
LOC: ER 13:49 → PCU 3S 16:35
PROVIDERS: ADMIT Internal Medicine; ATTEND Internal Medicine
PROC: 4A023N7 Measurement of Cardiac Sampling and Pressure, Left Heart, Percutaneous Approach (ICD-10-PCS; principal; 2019-11-05)
PROC: 027034Z Dilation of Coronary Artery, One Artery with Drug-eluting Intraluminal Device, Percutaneous Approach (ICD-10-PCS; 2019-11-05)
PROC: B2111ZZ Fluoroscopy of Multiple Coronary Arteries using Low Osmolar Contrast (ICD-10-PCS; 2019-11-05)
PROC: B2151ZZ Fluoroscopy of Left Heart using Low Osmolar Contrast (ICD-10-PCS; 2019-11-05)
DX: I21.4 Non-ST elevation (NSTEMI) myocardial infarction (principal); I10 Essential (primary) hypertension; I25.10 Atherosclerotic heart disease of native coronary artery without angina pectoris; E66.9 Obesity, unspecified; E78.5 Hyperlipidemia, unspecified; R94.5 Abnormal results of liver function studies; Z72.89 Other problems related to lifestyle; Z79.899 Other long term (current) drug therapy; Z68.38 Body mass index [BMI] 38.0-38.9, adult
CPT/HCPCS: 93458; 99285; C9600; 36415; 76700; 80053; 80061; 83036; 83735; 84484; 85025; 87081; 93005; 99152; 99153; A4620; A5120; C1725; C1751; C1769; C1874; C1894; G0378; J1644; J2001; J2250; J3010; J3490; J7030; Q9967

== ENCOUNTER 2023-01-28 05:37 | Day surgery (SDC) | payer BC ==
[2023-01-27 14:21] LABS: BASOPHILS % (AUTO) 0.4 % (0-1); EOSINOPHILS # (AUTO) 0.1 X10'3 (0-0.9); EOSINOPHILS % (AUTO) 1.3 % (0-6); HEMATOCRIT 44.2 % (42.0-52.0); HEMOGLOBIN 14.8 g/dl (14.0-17.9); LYMPHOCYTES # (AUTO) 2.5 X10'3 (1.1-4.8); MEAN CORPUSCULAR HGB CONC 33.3 g/dL (33.0-36.5); MEAN CORPUSCULAR VOLUME 93.1 FL (78-98); MEAN PLATELET VOLUME 6.5 FL (7.4-10.4); MONOCYTES # (AUTO) 0.5 X10'3 (0-0.9); MONOCYTES % (AUTO) 5.9 % (2-12); NEUTROPHILS % (AUTO) 65.4 % (42-75); PLATELET COUNT 368 X10'3 (140-440); RED BLOOD COUNT 4.75 X10'6 (4.70-6.10); RED CELL DISTRIBUTION WIDTH 13.8 % (11.5-14.5); WHITE BLOOD COUNT 9.2 X10'3 (4.5-11.0)
[2023-01-27 14:28] LABS: ALBUMIN 3.9 G/DL (3.4-5.0); ANION GAP 10 (8-16); BLOOD UREA NITROGEN 21 MG/DL (7-18); BUN/CREATININE RATIO 29.6 (10.0-20.0); CALCIUM 8.9 MG/DL (8.5-10.1); CHLORIDE 103 MMOL/L (99-107); CREATININE 0.71 MG/DL (0.60-1.10); GLUCOSE 92 MG/DL (70-104); POTASSIUM 4.1 MMOL/L (3.5-5.1); SODIUM 139 MMOL/L (135-145); TOTAL CARBON DIOXIDE 25.6 MMOL/L (24-32); eGFR > 90 ML/MIN
[2023-01-27 14:33] LABS: APTT 25 SECONDS (22-32)
[~2023-01-28] VITALS: Ht 165.1 cm; Wt 114.2 kg
[2023-01-28] VITALS (14 sets, daily range): BP systolic 101–150; BP diastolic 47–78; PULSE 51–66; RESP 16–18; TEMP 98.3; O2SAT 98
[~2023-01-28 05:37] MED LIST: ASPI81TA52 PO; ATOR40TA PO; LOP12.5T PO; LOSA25TA96 PO; TICA90TA PO
[2023-01-28] MEDS ORDERED: LORazepam 0.5 MG tablet PO PRN (07:10)
[2023-01-28] MEDS ORDERED: normal saline 1,000 ML IV SCH (07:10)
[2023-01-28] MEDS ORDERED: diphenhydrAMINE 25mg capsule PO PRN (07:10)
[2023-01-28] MEDS ORDERED: midazolam 1 mg/ML 2ml injection ONE ×2 (07:31→08:30)
[2023-01-28] MEDS ORDERED: LIDOcaine 1% 30ml preserv. free vial ONE (07:31)
[2023-01-28] MEDS ORDERED: verapamil 2.5 mg/ml inj IV ONE (07:31)
[2023-01-28] MEDS ORDERED: fentaNYL/PF 50MCG/1 ML 2ML syringe ONE (07:31)
[2023-01-28] MEDS ORDERED: nitroGLYCERIN-Tridil 50MG/D5W 250 ML IV ONE (07:31)
[2023-01-28] MEDS ORDERED: iohexol 350MG/ML 100ml bottle IV ONE ×2 (07:32→08:36)
[2023-01-28] MEDS ORDERED: heparin 1,000unit/ml 10ml vial 10 ML ONE (07:32)
[2023-01-28] MEDS ORDERED: iohexol 350 MG/ML 50ML vial IV ONE (07:32)
[2023-01-28] MEDS ORDERED: heparin 25,000 UNIT/250ml bag 250 ML IV ONE (08:36)
[2023-01-28] MEDS ORDERED: atropine 0.1mg/ml 10ml syringe ONE (09:19)
[2023-01-28] MEDS ORDERED: ticagrelor 90mg tablet ONE (09:21)
== END 2023-01-28 16:54 | disposition home or self-care (01) ==
LOC: SSTAY O 05:37
PROVIDERS: ATTEND Internal Medicine Cardiovascular Disease
DX: R94.39 Abnormal result of other cardiovascular function study (principal); T82.855A Stenosis of coronary artery stent, initial encounter; I25.10 Atherosclerotic heart disease of native coronary artery without angina pectoris; I10 Essential (primary) hypertension; E78.5 Hyperlipidemia, unspecified; G47.30 Sleep apnea, unspecified; I47.1 Supraventricular tachycardia; E66.9 Obesity, unspecified; Z68.41 Body mass index [BMI] 40.0-44.9, adult; I25.2 Old myocardial infarction; F17.220 Nicotine dependence, chewing tobacco, uncomplicated; Z90.49 Acquired absence of other specified parts of digestive tract; Z98.890 Other specified postprocedural states; Z79.899 Other long term (current) drug therapy; Y84.0 Cardiac catheterization as the cause of abnormal reaction of the patient, or of later complication, without mention of misadventure at the time of the procedure; Y92.89 Other specified places as the place of occurrence of the external cause
CPT/HCPCS: 36415; 76937; 80048; 85025; 85347; 85610; 85730; 92920; 92978; 93005; 93458; 99152; 99153; C1753; J0461; J1644; J2250; J3010; J3490; J7030; Q0163; Q9967; A6258; C1725; C1751; C1760; C1769; C1894